=== PATIENT | female | born 1995 | race Caucasian/White ===

== ENCOUNTER 2024-05-10 11:10 | Outpatient (CLI) | payer OTHER, SELFPAY ==
[2024-05-10 19:56] LABS: Basophils # 0.1 K/mm3 (0-0.2); Basophils % 0.8 % (0.1-2.0); Eosinophils # 0.2 K/mm3 (0.0-0.4); Eosinophils % 3.1 % (0.1-12.0); Hemoglobin 14.3 g/dL (12.2-16.2); Lymphocytes # 2.3 K/mm3 (0.7-4.5); Lymphocytes % 30.4 % (10-50); Mean Corpuscular HGB Conc 33.3 g/dL (31.8-35.4); Mean Corpuscular Hemoglobin 30.4 pg (27.0-31.2); Mean Corpuscular Volume 91.5 fl (81-99); Mean Platelet Volume 11.6 fl (7.4-10.4); Monocytes # 0.4 K/mm3 (0.1-1.0); Monocytes % 5.6 % (1.7-9.3); Neutrophils # 4.5 K/mm3 (1.8-7.8); Neutrophils % 59.8 % (37.0-80.0); Platelet Count 340 K/mm3 (142-424); Red Cell Distribution Width 12.1 % (11.5-17.5); White Blood Count 7.5 K/mm3 (4.8-10.8)
[2024-05-10 21:24] LABS: Albumin Level 4.6 g/dl (3.5-5.0); Chloride 105 mmol/L (98-107)
[2024-05-10 21:25] LABS: Potassium 4.2 mmoL/L (3.5-5.1); Sodium 135 mmol/L (136-145)
[2024-05-10 21:27] LABS: Alanine Aminotransferase 60 U/L (12-78); Anion Gap 13.2 mEq/L (5-15); Aspartate Amino Transferase 33 U/L (14-36); Blood Urea Nitrogen 10 mg/dl (7-17); Carbon Dioxide 21 mmol/L (22.0-30.0); Estimated Glomerular Filt Rate 73 ml/min (>60); GFR (African American) 88 ML/MIN (>60)
[2024-05-10 21:28] LABS: Albumin/Globulin Ratio 1.6 (1.1-1.8); Alkaline Phosphatase 114 U/L (38-126); Calcium 9.5 mg/dl (8.4-10.2); Chol/HDL Ratio 4.1 (1-3.5); Cholesterol 180 mg/dl (140-200); Globulin 2.8 g/dL (1.3-3.2); Glucose 111 mg/dl (74-100); HDL Cholesterol 44 mg/dl (40-60); Total Protein,Serum 7.4 g/dl (6.3-8.2); Triglycerides 150 mg/dl (30-150); VLDL Cholesterol 30 mg/dL (0-40)
[2024-05-10 21:39] LABS: Direct LDL Cholesterol 97.74 mg/dL (100-129)
[2024-05-10 21:47] LABS: T4 (Thyroxine) 7.9 ug/dl (5.53-11.0)
[2024-05-10 21:51] LABS: Bilirubin,Total < 0.1 mg/dl (0.2-1.3)
[2024-05-10 21:52] LABS: 25-OH Vitamin D, Total 26.9 ng/mL (30-100)
[2024-05-10 22:01] LABS: Thyroid Stimulating Hormone 3.66 uIU/mL (0.465-4.68)
[2024-05-11 07:53] LABS: Hemoglobin A1C 5.3 % (4.0-6.0)
== END 2024-05-10 23:59 | disposition home or self-care (01) ==
LOC: LAB.DROPOF 05-11 08:49
PROVIDERS: PCP Nurse Practitioner Acute Care; Visit Provider Nurse Practitioner Acute Care
DX: F32.9 Major depressive disorder, single episode, unspecified (principal); F41.1 Generalized anxiety disorder; E55.9 Vitamin D deficiency, unspecified
CPT/HCPCS: 80053; 80061; 82306; 83036; 84436; 84443; 85025

== ENCOUNTER 2024-11-17 14:45 | Outpatient (CLI) | payer OTHER, SELFPAY ==
[2024-11-17 20:05] LABS: Lyme Ab IgM CIA ND
[2024-11-17 20:58] LABS: Hematocrit 40.5 % (37.0-47.0); Hemoglobin 13.3 g/dL (12.2-16.2); Immature Granulocytes % 0.3 %; Mean Corpuscular HGB Conc 32.8 g/dL (31.8-35.4); Mean Corpuscular Hemoglobin 29.2 pg (27.0-31.2); Mean Corpuscular Volume 89.0 fl (81-99); Nucleated Red Blood Cells % 0 %; Platelet Count 295 K/mm3 (142-424); Red Blood Count 4.55 M/mm3 (4.20-5.40); Red Cell Distribution Width-SD 41.1 fL; White Blood Count 6.9 K/mm3 (4.8-10.8)
[2024-11-17 21:13] LABS: Albumin Level 4.5 g/dl (3.5-5.0); Chloride 102 mmol/L (98-107)
[2024-11-17 21:14] LABS: Potassium 4.2 mmoL/L (3.5-5.1); Sodium 138 mmol/L (136-145)
[2024-11-17 21:16] LABS: Alanine Aminotransferase 25 U/L (12-78); Anion Gap 13.2 mEq/L (5-15); Aspartate Amino Transferase 28 U/L (14-36); Bilirubin,Total 0.5 mg/dl (0.2-1.3); Blood Urea Nitrogen 10 mg/dl (7-17); Carbon Dioxide 27 mmol/L (22.0-30.0); Creatinine,Serum 0.80 mg/dl (0.52-1.04); Estimated Glomerular Filt Rate 84 ml/min (>60); GFR (African American) 101 ML/MIN (>60)
[2024-11-17 21:17] LABS: Albumin/Globulin Ratio 1.6 (1.1-1.8); Alkaline Phosphatase 102 U/L (38-126); Calcium 9.7 mg/dl (8.4-10.2); Globulin 2.9 g/dL (1.3-3.2); Glucose 94 mg/dl (74-100); Total Protein,Serum 7.4 g/dl (6.3-8.2)
[2024-11-17 21:33] LABS: Free T4 (Free Thyroxine) 1.05 ng/dl (0.78-2.19)
[2024-11-17 21:46] LABS: Thyroid Stimulating Hormone 1.96 uIU/mL (0.465-4.68)
[2024-11-17 21:54] LABS: Hemoglobin A1C 5.1 % (4.0-6.0)
[2024-11-17 22:10] LABS: C-Reactive Protein 13.5 mg/L (0-4)
[2024-11-17 22:51] LABS: Hepatitis C Ab Qual. W/ RFX NEGATIVE (Negative)
--- OUTSIDE RECORDS SUMMARY | 2024-11-18 14:15 | XMS_ITS | Encounter Summary ---
Author Organization [place] [address] Care Team Providers Care Biology Department Chair Name Role Phone Unavailable Primary Care Provider Unavailabl e Reason for Referral * Ultrasound (Emergency) - Pending Review Specialty Diagnoses / Procedures Referred By Sanford anand Referred To Contact Radiology Diagnoses Iodine-deficiency related diffuse goiter Dysphagia, unspecified type Localized enlarged lymph nodes Procedures US THYROID Lary Harding APRN [address] [address] [place] [address] Phone: tel: fax: Referral ID Status Reason Start Date Expiration Date V isits Requested Visits Authorized [id number] Pending Review 11/18/2024 11/18/2025 1 1 Reason for Visit * Ultrasound (Emergency) - Pending Review Specialty Diagnoses / Procedures Referred By Sanford anand Referred To Contact Radiology Diagnoses Iodine-deficiency related diffuse goiter Dysphagia, unspecified type Localized enlarged lymph nodes Procedures US THYROID Lary Harding APRN [address] [place] [address] Phone: tel: fax: Referral ID Status Reason Start Date Expiration Date V isits Requested Visits Authorized [id number] Pending Review 11/18/2024 11/18/2025 1 1 Encounter Details Date Type Department Care Team (Latest Contact Info) Description 11/18/2024 2:15 PM EDT - 11/18/2024 2:17 PM EDT Hospital Encounter [facility] Ultrasound [address] [place] [address] Lary Harding, CAB STARTER [address] [place] [address] Iodine-deficiency related diffuse goiter; Dysphagia, unspecified type; Localized enlarged lymph nodes Discharge Disposition: Home or Self Care Social History Tobacco Use Types Packs/Day Years Used Date Smoking Tobacco: Every Day Cigarettes 0.5 13.7 Started: 2011 Smokeless Tobacco: Never Alcohol Use Standard Drinks/Week Comments Yes 6 (1 standard drink = 0.6 oz pur e alcohol) Overall Financial Resource Strain (CARDIA) Answe r Date Recorded How hard is it for you to pa y for the very basics like food, housing, medical care, and heating? Not hard at all 04/10/2021 PHQ-2 Answer Date Recorded PHQ-2 Score 0 07/16/2018 [facility] of Occupat ional Health - Occupational Stress Questionnaire Answer Date Recorded Do you feel stress - tense, restless, nervous, or anxious, or unable to sleep at night because your mind is troubled all the time - these days? Very much 04/10/2021 Hunger Vital Sign Answer Date Recorded Within the past 12 months, y ou worried that your food would run out before you got the money to buy more. Never true 04/10/19 22 Within the past 12 months, t he food you bought just didn't last and you didn't have money to get more. Never true 04/10/2021 PRAPARE - Transportation Answer Date Re corded In the past 12 months, has l ack of transportation kept you from medical appointments or from getting medications? No 03/26 In the past 12 months, has l ack of transportation kept you from meetings, work, or from getting things needed for daily living? No 04/10/2021 Sexually Active Control Partners Comments Yes Male not preventing Comments No Sex and Gender Information Value Date Recorded Sex Assigned at Not on file Legal Sex Female 1:17 AM EDT Gender Identity Not on file Sexual Orientation Not on file documented as of this encounter Functional Status * Is the person deaf or does he/she have serious difficulty hearing? Answer Date of Assessment Author No 03/19/2018 3:41 PM Hernan Fermin LPN * Is the person blind or does he/she have serious difficulty seeing even when wearing glasses? Answer Date of Assessment Author No 03/19/2018 3:41 PM Hernan Fermin LPN * Does this person have serious difficulty walking or climbing stairs? Answer Date of Assessment Author No 03/19/2018 3:41 PM Hernan Fermin LPN * Does this person have difficulty dressing or bathing? Answer Date of Assessment Author No 03/19/2018 3:41 PM Hernan Fermin LPN * Because of a physical, mental or emotional condition, does this person have difficulty doing errands alone such as visiting a doctor's office or shopping? Answer Date of Assessment Author No 03/19/2018 3:41 PM Hernan Fermin LPN documented as of this encounter Mental Status * Because of a physical, mental or emotional condition, does this person have serious difficulty concentrating, remembering or making decisions? Answer Entry Date Author No 03/19/2018 3:41 PM Hernan Fermin LPN documented in this encounter Medications at Time of Discharge acetaminophen (TYLENOL) 500 mg Oral Tablet Take 500 mg by mouth as needed for Pain. albuterol (PROVENTIL HFA;VENTOLIN HFA) 90 mcg/actuation Inhl HFA Aerosol InhalerIndicatio ns:Bronchitis Inhale 2 Puffs into the lungs every 4 hours as needed for Wheezing. 1 Each 10/14/2021 amitriptyline (ELAVIL) 10 mg Oral Tablet TAKE 1 TO 2 TABLETS BY MOUTH NIGHTLY AT BEDTIME NEEDED FOR INSOMNIA. 05/11/2024 diphenhydrAMINE (BENADRYL) 25 mg Oral TabletIndication s:insomnia Take 100 mg by mouth nightly. Indications: difficulty sleeping doxepin (SINEQUAN) 25 mg Oral Capsule Take 25 mg by mouth 2 times daily. 08/20/2022 FLUoxetine (PROZAC) 20 mg Oral Capsule Take 20 mg by mouth daily. 08/20/2022 lamoTRIgine (LAMICTAL) 25 mg Oral Tablet TAKE 1 TABLET BY MOUTH DAILY FOR 14 DAYS. THEN INCREASE TO 2 TABS DAILY X 14 DAYS. IF A RASH OR ITCHING OCCURS, STOP MEDICATION AND CALL THE CLINIC. 05/11/2024 documented as of this encounter Discharge Disposition Disposition Code Departure Means Destination Home or Self Care documented in this encounter Plan of Treatment Not on file documented as of this encounter Goals Goal Patient Goal Type Associated Problems Recent Progress Patient-Stated? Author Blood Pressure < 140/90 Blood Pressure 150/90(2024 4:38 PM EDT) No Hernan Louie LPN Eat better, exercise, reach an ideal body weight General No Joanne Cervantes MD BMI (Calculated) < 30 General 44(09/02/2022 10:01 AM EDT) No Hernan Louie LPN Stay Tobacco Free Lifestyle No Joanne Cervantes MD HEMOGLOBIN A1C < 7.0 Result Component 5.6( 1:06 PM EST) No Hernan Louie LPN documented as of this encounter Procedures Procedure Name Priority Date/Time Associated Diagnosis Comments US THYROID STAT 11/18/2024 2:43 PM EDT Iodine-deficiency related diffuse goiter Dysphagia, unspecified type Localized enlarged lymph nodes documented in this encounter Results * US THYROID (11/18/2024 2:43 PM EDT) Anatomical Region Laterality Modality Neck Ultrasound 11/18/2024 2:43 PM EDT Impressions 11/18/2024 2:47 PM EDT No thyroid nodule. - Note: Radiology results need to be interpreted within a comprehensive clinical context. If you have questions about the radiology report, please contact the office of the ordering clinician. Narrative 11/18/2024 2:47 PM EDT THYROID SONOGRAPHY, 11/18/2024 2:43 PM CLINICAL HISTORY: Thyroid nodule(s). E01.2-Pitvgx-fraogzsfmu related diffuse (endemic) ndfwrz-ZVT-58-CM R13.10-Dysphagia, ktyfsrculnc-WCM-85-CM R59.0-Localized enlarged lymph ckwlp-DOA-67-CM. COMPARISON: None. PROCEDURE COMMENTS: Sonographic evaluation of the thyroid gland per protocol. Images and technologist notes reviewed. METHODOLOGY: Up to 4 nodules with the highest scores are reported using the Thyroid Imaging Reporting and Data System (TI-RADS). This system promotes a common lexicon for thyroid nodule description, focusing on relevant imaging characteristics to allow risk stratification of individual nodules and makes recommendations for biopsy or sonographic follow-up based on the estimated risk profile. Caveat: Deviation from the below TI-RADS management recommendations may be appropriate based on individual patient variables and/or differing society criteria. Right lobe measures: 4.9 x 1.5 x 2.0 cm. Left lobe measures: 5.3 x 1.0 x 1.5 cm. RIGHT-side lymph nodes: No suspicious lymph nodes. LEFT-side lymph nodes: No suspicious lymph nodes. No measured thyroid nodules. No significant additional finding. Procedure Note Monse Barrera MD - 11/18/2024 THYROID SONOGRAPHY, 11/18/2024 2:43 PM CLINICAL HISTORY: Thyroid nodule(s). E01.5-Dvxmvr-jizmhdbwxi relateddiffuse (endemic) zlsusk-IWB-50-CM R13.10-Dysphagia, tiymzfjxkci-XBX-58-CM R59.0-Localized enlarged lymph brhhu-BTK-40-CM. COMPARISON: None. PROCEDURE COMMENTS: Sonographic evaluation of the thyroid gland perprotocol. Images and technologist notes reviewed. METHODOLOGY: Up to 4 nodules with the highest scores are reported usingthe Thyroid Imaging Reporting and Data System (TI-RADS). This system promotesa common lexicon for thyroid nodule description, focusing on relevantimaging characteristics to allow risk stratification of individual nodules andmakes recommendations for biopsy or sonographic follow-up based on the estimatedrisk profile. Caveat: Deviation from the below TI-RADS management recommendations maybe appropriate based on individual patient variables and/or differingsociety criteria. Right lobe measures: 4.9 x 1.5 x 2.0 cm. Left lobe measures: 5.3 x 1.0 x 1.5 cm. RIGHT-side lymph nodes: No suspicious lymph nodes. LEFT-side lymph nodes: No suspicious lymph nodes. No measured thyroid nodules. No significant additional finding. IMPRESSION: No thyroid nodule. - Note: Radiology results need to be interpreted within a comprehensiveclinical context. If you have questions about the radiology report, please contactthe office of the ordering clinician. us Lary Harding APRN IMG US ORDERABLES Final Result documented in this encounter Visit Diagnoses Diagnosis Iodine-deficiency related diffuse goiter Goiter, specified as simple Dysphagia, unspecified type Localized enlarged lymph nodes Enlargement of lymph nodes documented in this encounter
--- OUTSIDE RECORDS SUMMARY | 2024-11-18 14:18 | XMS_ITS | Encounter Summary ---
Author Organization [place] [address] Care Team Providers Care Construction Supervisor/Carpenter Name Role Phone Unavailable Primary Care Provider Unavailabl e Reason for Referral * MRI/CAT Scan (Emergency) - Closed Specialty Diagnoses / Procedures Referred By [facility]ford anand Referred To Contact Radiology Diagnoses Dysphasia Enlarged lymph node in neck Procedures CT SOFT TISSUE NECK W CONTRAST Lary Harding APRN [address] [address] [address] [place] [address] Phone: tel: fax: Referral ID Status Reason Start Date Expiration Date Visits Re quested Visits Authorized [id number] Closed 11/18/2024 11/18/2025 1 1 Reason for Visit * MRI/CAT Scan (Emergency) - Closed Specialty Diagnoses / Procedures Referred By Sanford anand Referred To Contact Radiology Diagnoses Dysphasia Enlarged lymph node in neck Procedures CT SOFT TISSUE NECK W CONTRAST Lary Harding APRN [address] [facility] [address] [place] [address] Phone: tel: fax: Referral ID Status Reason Start Date Expiration Date Visits Re quested Visits Authorized [id number] Closed 11/18/2024 11/18/2025 1 1 Encounter Details Date Type Department Care Team (Latest Contact Info) Description 11/18/2024 2:18 PM EDT - 11/18/2024 11:59 PM EDT Hospital Encounter [facility] CT [address] [place] [address] Lary Harding, HIGH [employer]CHO[employer] MATH TE[employer]ER [address] [place] [address] Dysphasia; Enlarged lymph node in neck Discharge Disposition: Home or Self Care Social [...] Answer Date Recorded PHQ-2 Score 0 07/16/2018 [facility] of Occupat ional Health - Occupational Stress [...] of Assessment Author No 03/19/2018 3:41 PM Henran Fermin LPN * Because of a physical, [...] < 30 General 44(09/02/2022 10:01 AM EDT) Hernan Hartley LPN Stay Tobacco Free Lifestyle No Joanne Cervantes MD HEMOGLOBIN A1C < 7.0 Result Component 5.6( 1:06 PM EST) No Hernan Louie LPN documented as of this encounter Procedures Procedure Name Priority Date/Time Associated Diagnosis Comments CT SOFT TISSUE NECK W CONTRAST STAT 11/18/2024 2:50 PM EDT Dysphasia Enlarged lymph node in neck documented in this encounter Results * CT SOFT TISSUE NECK W CONTRAST (11/18/2024 2:50 PM EDT) Anatomical Region Laterality Modality Neck Computed Tomogra phy 11/18/2024 2:50 PM EDT Impressions 11/18/2024 3:31 PM EDT 1. Mildly enlarged bilateral cervical chain lymph nodes which are indeterminate, however many demonstrate maintained fatty ángela and favored reactive. Recommend short interval follow-up imaging to assess stability/resolution. 2. Mild/moderate multifocal paranasal sinus disease. - Note: Radiology results need to be interpreted within a comprehensive clinical context. If you have questions about the radiology report, please contact the office of the ordering clinician. Narrative 11/18/2024 3:[address] SOFT TISSUE NECK W CONTRAST 11/18/2024 2:50 PM CLINICAL HISTORY: R47.78-Euwwdsfep-TXT-10-CM R59.0-Localized enlarged lymph kgyon-UYA-43-CM. COMPARISON: CT pulmonary angiogram dated 04/07/2021, CT cervical spine dated 11/14/2014 PROCEDURE COMMENTS: Multidetector volumetric CT scan of the neck per protocol. Multiplanar reconstructions. Isovue 370 IV contrast given as recorded in EPIC. Dose 1 : CT DLP Total : 312.65 mGycm DLP Spiral Max : 299.88 mGycm Maximum CTDI Vol : 9.45 mGy FINDINGS: PHARYNGEAL MUCOSA: No evidence of mass or active inflammation. ORAL CAVITY: No evidence of mass or active inflammation. LARYNX: The glottis is coapted at the time scanning, limiting its evaluation. The laryngeal structures otherwise appear symmetric without discrete nodular or masslike enhancement. The epiglottis is normal thickness. LYMPH NODES: Mildly enlarged bilateral cervical chain lymph nodes with exemplary lymph nodes including a right level IB lymph node measuring approximately 2.4 x 1 cm, a left level II lymph node approximately 1.3 x 1 cm SALIVARY GLANDS: No evidence of mass or active inflammation. THYROID: No suspicious nodule or mass. VESSELS AND CAROTID SPACE: Major vasculature appears patent. BONES: No acute fracture or osteolytic lesion. Reversal the normal cervical lordosis. OTHER: Mild irregular soft tissue density in the anterior mediastinum, likely related to residual thymus tissue. Small pleural-based small pleural-based nodular opacity in the posterior right upper lobe measuring 4 mm, nonspecific but likely inflammatory given the patient's age. Calcified granulomas in the left upper lobe. Multiple small mucous retention cyst left maxillary sinus. Mild mucosal thickening of the ethmoid air cells. Moderate right and mild mucosal thickening in the sphenoid sinuses. Mild opacification of the left mastoid air cells. Calcified left hilar lymph nodes, likely sequela. Chronic granulomas disease. Procedure Note Chriss Young, DO - 11/18/2024 CT SOFT TISSUE NECK W CONTRAST 11/18/2024 2:50 PM CLINICAL HISTORY: R47.33-Escufekgp-IZH-10-CM R59.0-Localized enlarged lymph mikxf-MRE-20-CM. COMPARISON: CT pulmonary angiogram dated 04/07/2021, CT cervical spinedated 11/14/2014 PROCEDURE COMMENTS: Multidetector volumetric CT scan of the neck perprotocol. Multiplanar reconstructions. Isovue 370 IV contrast given as recorded inEPIC. Dose 1 : CT DLP Total : 312.65 mGycm DLP Spiral Max : 299.88 mGycm Maximum CTDI Vol : 9.45 mGy FINDINGS: PHARYNGEAL MUCOSA: No evidence of mass or active inflammation. ORAL CAVITY: No evidence of mass or active inflammation. LARYNX: The glottis is coapted at the time scanning, limiting itsevaluation. The laryngeal structures otherwise appear symmetric without discretenodular or masslike enhancement. The epiglottis is normal thickness. LYMPH NODES: Mildly enlarged bilateral cervical chain lymph nodes withexemplary lymph nodes including a right level IB lymph node measuring approximately2.4 x 1 cm, a left level II lymph node approximately 1.3 x 1 cm SALIVARY GLANDS: No evidence of mass or active inflammation. THYROID: No suspicious nodule or mass. VESSELS AND CAROTID SPACE: Major vasculature appears patent. BONES: No acute fracture or osteolytic lesion. Reversal the normalcervical lordosis. OTHER: Mild irregular soft tissue density in the anterior mediastinum,likely related to residual thymus tissue. Small pleural-based smallpleural-based nodular opacity in the posterior right upper lobe measuring 4 mm,nonspecific but likely inflammatory given the patient's age. Calcified granulomas inthe left upper lobe. Multiple small mucous retention cyst left maxillarysinus. Mild mucosal thickening of the ethmoid air cells. Moderate right and mildmucosal thickening in the sphenoid sinuses. Mild opacification of the left mastoidair cells. Calcified left hilar lymph nodes, likely sequela. Chronicgranulomas disease. IMPRESSION: 1. Mildly enlarged bilateral cervical chain lymph nodes which are indeterminate, however many demonstrate maintained fatty ángela andfavored reactive. Recommend short interval follow-up imaging to assess stability/resolution. 2. Mild/moderate multifocal paranasal sinus disease. - Note: Radiology results need to be interpreted within a comprehensiveclinical context. If you have questions about the radiology report, please contactthe office of the ordering clinician. Lary Harding APRN IMG CT ORDERABLES Final Result documented in this encounter Visit Diagnoses Diagnosis Dysphasia Other speech disturbance Enlarged lymph node in neck documented in this encounter Administered Medications Inactive Administered Medications - up to 1 most recent administrations Medication Order MAR Action Action Date Dose Rate Site iopamidoL (ISOVUE-370) 370 mg iodine /mL (76 %) injection (LOW) 90 mL 90 mL, Intravenous, ONCE PRN, 1 dose, Starting on Thu11/18/24 at 1422, Until Thu11/18/24 at 1452, Radiography/Imaging, Radiology Procedure, VESICANT , CT (Contrasts) Given 11/18/2024 2:52 PM EDT 90 mL Left Arm sodium chloride 0.9% syringe Intravenous, ONCE PRN, 1 dose, Starting on Thu11/18/24 at 1422, Until Thu11/18/24 at 1453, Line Care, Flush peripheral lines every 12 hours, central lines every 8 hours, and after IV medication, CT (Contrasts) Given 11/18/2024 2:53 PM EDT 10 mL Lef t Arm documented in this encounter
[2024-11-19 04:25] LABS: Hepatitis B Surface Antigen Negative (Negative)
[2024-11-19 08:12] LABS: Triiodothyronine (T3) Free 3.2 pg/mL (2.0-4.4)
[2024-11-19 11:19] LABS: Lyme Ab CIA Negative (Negative)
--- OUTSIDE RECORDS SUMMARY | 2024-11-21 09:08 | XMS_ITS | Clinical Summary ---
Author Organization [employer] [facility] Address [address] [place] [phone] Phone Care Team Providers Care Veneer Sawyer Name Role Phone Unavailable Unavailable Conditions or Problems No information available. Medications No information available. Medications Administered No information available. Allergies, Adverse Reactions, Alerts No information available. Results No information available. Plan of Care No information available. Procedures No information available. Vital Signs No information available. Immunizations No information available. Advance Directives No information available.
--- OUTSIDE RECORDS SUMMARY | 2024-11-21 09:10 | XMS_ITS | Clinical Summary ---
Author Organization [facility] Address [address] [place] [address] Care Team Providers Care Sr. Director Product Management Name Role Phone Lary Harding MERT Primary Care Provider [phone] Social History Tobacco Use Types Packs/Day Years Used Date Smoking Tobacco: Never Assessed Comments Unknown Sex and Gender Information Value Date Recorded Sex Assigned at Not on file Legal Sex Female 2:04 PM EDT Gender Identity Not on file Sexual Orientation Not on file Plan of Treatment Upcoming Encounters Date Type Department Care Team (Late st Contact Info) Description 12/19/2024 11:00 AM EDT Office Visit [facility] OBGYN [address] [place] [address] Ernesto Brody MD [address] [facility] [address] [place], [place] [id number] Health Maintenance Due Date Last Done Comments ANNUAL PHYSICAL 1993 Annual Gynecologic Pelvic an d Breast Exam 1993 HEPATITIS C SCREENING 1993 TDAP/TD VACCINES (1 - Tdap) 01/22/2012 INFLUENZA VACCINE 09/23/2024 Pneumococcal Vaccine 0-49 Aged Out No longer eligible based on patient's age to complete this topic Insurance [facility] Care Teams Sr. Director Product Management Relationship Specialty Start Date End Date Lary Harding APRN [address] [facility] [place] [address] PCP - General Nurse Practitioner 08/25/24
--- OUTSIDE RECORDS SUMMARY | 2024-11-21 09:10 | XMS_ITS | Clinical Summary ---
Author Organization [facility] [place] [facility] Address [address] [place] [address] Phone Care Team Providers Care Conservator Artifacts Name Role Phone Unavailable Primary Care Provider Unavailabl e Allergies Active Allergy Reactions Criticality Noted Date Comments Codeine Sulfate Other (See Comments) 12/31/2016 - Hydrocodone-Acetaminop hen Other (See Comments) High 03/03/2012 Chest pain Sumatriptan Succinate 10/02/2009 Sumatriptan Other (See Comments) Medium 11/09/2014 felt like my head was going to explode Lamotrigine Other (See Comments) Medium 11/17/2016 Disorientation and blurred vision and shaking Latex Hives Medium 05/20/2010 Morphine Anxiety High 03/12/2009 also causes difficulty breathing Penicillins Shortness Of Breath,Swelling High 10/02/2009 12/31/2016 - Causes swelling in throat. Pt states it is difficult to breathe. Medications * This document contains information received from the source organization and may not represent a complete record from that organization. acetaminophen (TYLENOL) 500 mg Oral Tablet Take 500 mg by mouth as needed for Pain. Active diphenhydrAMINE (BENADRYL) 25 mg Oral TabletIndicatio ns:insomnia Take 100 mg by mouth nightly. Indications: difficulty sleeping Active albuterol (PROVENTIL HFA;VENTOLIN HFA) 90 mcg/actuation Inhl HFA Aerosol InhalerIndicati ons:Bronchitis Inhale 2 Puffs into the lungs every 4 hours as needed for Wheezing. 1 Each 2 Active Additional Information Patient not taking.Reported on 06/01/2024 doxepin (SINEQUAN) 25 mg Oral Capsule Take 25 mg by mouth 2 times daily. 3 Active FLUoxetine (PROZAC) 20 mg Oral Capsule Take 20 mg by mouth daily. 3 Active lamoTRIgine (LAMICTAL) 25 mg Oral Tablet TAKE 1 TABLET BY MOUTH DAILY FOR 14 DAYS. THEN INCREASE TO 2 TABS DAILY X 14 DAYS. IF A RASH OR ITCHING OCCURS, STOP MEDICATION AND CALL THE CLINIC. 5 Active amitriptyline (ELAVIL) 10 mg Oral Tablet TAKE 1 TO 2 TABLETS BY MOUTH NIGHTLY AT BEDTIME NEEDED FOR INSOMNIA. 5 Active Active Problems Patient Care Coordination No te Formatting of this note migh t be different from the original. Dr. Esteban edge 11/07/16, 02/27/17, 11/16/17 UDS 07/08/16 Pt Transferred Medical Records to [facility] 05/09/16 Problem Noted Date Diagnosed Date Obesity, Class III, BMI 40-49.9 (morbid obesity) 05/22/2022 Psychophysiological insomnia 01/07/2019 Attention deficit hyperactiv ity disorder (ADHD), predominantly inattentive type 06/09/2018 DERICK (generalized anxiety disorder) 08/11/2017 Mood disorder 08/11/2017 Seasonal affective disorder 03/02/2017 Attention deficit hyperactiv ity disorder (ADHD), combined type 01/19/2017 Hx gestational diabetes 05/14/2016 History of migraine 03/31/2016 History of depression 03/31/2016 History of anxiety 03/31/2016 Depression with anxiety 03/01/2014 Migraine 11/09/2013 Pulmonary nodule, left 07/07/2013 Overview (07/07/2013): Needs follow up CT in Nov 2013 Chronic pelvic pain in female 03/04/2012 Deliberate self-cutting 09/08/2011 History of chicken pox 10/02/2009 Obesity 10/02/2009 IBS (irritable bowel syndrome) 10/02/2009 Family planning 05/02/2009 Overview (11/09/2014): Overview: 05/02/09 New start OCP. Posttraumatic stress disorder 03/30/2009 Elevation of level of transa minase or lactic acid dehydrogenase (LDH) 03/12/2009 Esophagitis Gastritis and duodenitis Resolved Problems Problem Noted Date Diagnosed Date Resolved Date Normal labor 04/24/2020 06/02/2020 39 weeks gestation of 04/23/2020 06/02/2020 Encounter for induction of labor 04/23/2020 06/02/2020 COVID-19 affecting in third trimester 02/29/2020 06/02/2020 Tobacco use during 09/22/2019 09/22/2019 examination or jaleesa t, positive result 09/22/2019 06/02/2020 Obesity affecting in third trimester 09/22/2019 06/02/2020 Normal labor 04/02/2016 05/14/2016 Vaginal bleeding in 03/31/2016 05/14/2016 37 weeks gestation of 03/31/2016 05/14/2016 [place] contraction 03/19/2016 0 03/26/2016 Proteinuria affecting 03/19/2016 09/22/2019 Diet controlled gestational diabetes mellitus (GDM) in third trimester 02/11/2016 05/14/2016 High-risk 09/13/2015 06/03/19 21 Female genital tract infection 03/14/2009 03/31/2016 Overview (11/09/2014): Overview: Culture negative Nausea and vomiting 03/12/2009 03/31/19 17 Encounters Date Type Department Care Team Description 11/18/2024 2:18 PM EDT - 11/18/2024 11:59 PM EDT Hospital Encounter [facility] [address] [place] [address] Lary Harding APRN Dysphasia; Enlarged lymph node in neck Discharge Disposition: Home or Self Care 11/18/2024 2:15 PM EDT - 11/18/2024 2:17 PM EDT Hospital Encounter [facility] Ultrasound [address] [place] [address] Lary Harding APRN Iodine-deficiency related diffuse goiter; Dysphagia, unspecified type; Localized enlarged lymph nodes Discharge Disposition: Home or Self Care from Last 3 Months Immunizations Immunization Administration Dates Next Due DTaP 10/23/2004,199 5,1993,1993,1993 HPV Quadrivalent 11/23/2008,10/04/2008 Hepatitis A, Unspecified Formulation 10/04/2008 Hepatitis B, Unspecified Formulation 1993, 1993,1993 HiB, Unspecified Formulation 06/30/1994, 1993,1993,1993 IPV 03/20/1998, 4,1993,1993 Influenza Intradermal 12/10/2011 Influenza Vaccine Quadrivalent PF 12/01/2019,07/2015 Influenza Vaccine, Unspecifi ed Formulation 12/18/2009 MMR 03/20/1998,07/10/1994 Tdap 04/05/2020,03/27/2016 Surgical History Surgery Date Site/Laterality Comments UPPER GASTROINTESTINAL ENDOSCOPY 05/24/2008 - 06/22/2008 normal CHOLECYSTECTOMY LAPAROSCOPIC APPENDECTOMY 06/14/2010 N/A LAPAROSCOPIC APPENDECTOMY - SCIP performed by NADJA WETZEL at [facility] OR APPENDECTOMY UPPER GASTROINTESTINAL ENDOSCOPY 12/21/2018 N/A ESOPHAGOGASTRODUODENOSCO PY with biopsy; Surgeon: Savage More MD; Location: [facility]; Service: Endoscopy Medical History Medical History Date Comments Migraine IBS (irritable bowel syndrome) Urinary tract infection Self-harm Pt sts cuts her arms to self harm herself. Endometriosis PTSD (post-traumatic stress disorder) Depression 03/2018 Anxiety disorder Family History Medical History Relation Name Comments Asthma Brother Arthritis Father Colon Polyps Father Depression Father High Blood Pressure Maternal Aunt High Blood Pressure Maternal Grandfather Hearing Loss Maternal Grandmother High Blood Pressure Maternal Grandmother Other Maternal Grandmother Lupus Depression Mother Lupus Mother Other Mother Lupus Colon Polyps Sister Celiac Disease Neg Hx Cystic Fibrosis Neg Hx Hemochromatosis Neg Hx Liver Cancer Neg Hx Stomach Cancer Neg Hx Relation Name Status Comments Brother Alive Father Alive Maternal Aunt Alive Maternal Grandfather Alive Maternal Grandmother Alive Mother Alive Paternal Grandfather Alive Paternal Grandmother Alive Sister Alive Social History Tobacco Use Types Packs/Day Years Used Date Smoking Tobacco: Every Day Cigarettes 0.5 13.7 Started: 2011 Smokeless Tobacco: Never Tobacco Cessation:Ready to Q uit: Not Asked; Counseling Given: Not Answered Alcohol Use Standard Drinks/Week Comments Yes 6 (1 standard drink = 0.6 oz pur e alcohol) Overall Financial Resource Strain (CARDIA) Answe r Date Recorded How hard is it for you to pa y for the very basics like food, housing, medical care, and heating? Not hard at all 04/10/2021 PHQ-2 Answer Date Recorded PHQ-2 Score 0 07/16/2018 [facility] - Occupational Stress [...] on file Sexual Orientation Not on file Obstetrics History Para Term AB IAB SAB Ectopic Multiple Livin g Live Births 4 2 2 2 2 0 2 2 Date Outcome GA Total Labor Labor/2nd/3rd Weight Sex Type Anes PTL Saskia A1 A5 Name Clin SAB SAB 2016 Term 37w 6d 0h 05m 0h 05m 6 lb 7 oz (2.92 kg) M Vag-S pont Epidur al N Livin g 7 9 ANNIA SON,E ARMAAN BOY Aaron cates, Yenny Wells MD Complications:GDM (gestation al diabetes mellitus), class A1,Fever Delivery Location:[facility] Comments:none 2020 Term 39w 1d 0h 06m 0h 06m 7 lb 1.2 oz (3.21 kg) F Vag-S pont Epidur al Livin g 8 9 ANNIA SON,Sola CROOK BABY Aaron Yenny cates MD Delivery Location:[facility] ([facility]) Last Filed Vital Signs Vital Sign Reading Time Taken Comments Blood Pressure 150/90 06/01/2024 4:38 PM EDT Pulse 114 06/01/2024 4:38 PM EDT Temperature 36.7 C (98.1 F) 06/01/2024 4:38 PM EDT Respiratory Rate 16 06/01/2024 4:38 PM EDT Oxygen Saturation 99% 06/01/2024 4:38 PM EDT Inhaled Oxygen Concentration - - Weight 124.5 kg (274 lb 6.4 oz) 06/01/2024 4:38 PM EDT Height 173.4 cm (5' 8.25 ) 09/02/2022 1 0:01 AM EDT Body Mass Index 41.42 09/02/2022 10:01 AM EDT Plan of Treatment Health Maintenance Due Date Last Done Comments Annual Wellness Exam 01/22/1996 Pneumococcal Vaccine 0-49 (1 of 2 - PCV) 01/22/2012 Pap Smear 09/21/2022 09/22/2019, 11/09/2016, 10/04/2015 Cervical Cancer Screening 2023 HPV/Pap Cotest 2023 COVID-19 Vaccine ( season) 2024 Influenza Vaccine (#1) 2024 , 11/29/2015, 03/01/2014 (Declined), Additional history exists DTaP/TDaP/Td (9 - Td or Tdap) 04/05/2030 04/05/2020, 03/27/2016, 10/23/2004, Additional history exists Hepatitis B Vaccine Completed 1993, 1993, 1993 Meningococcal B Vaccine Aged Out No l onger eligible based on patient's age to complete this topic Goals Goal Patient Goal Type Associated Problems Recent Progress Patient-Stated? Author Blood Pressure < 140/90 Blood Pressure 150/90(2024 4:38 PM EDT) No Hernan Louie LPN Eat better, exercise, reach an ideal body weight General No Joanne Cervanets MD BMI (Calculated) < 30 General 44(09/02/2022 10:01 AM EDT) No Hernan Louie LPN Stay Tobacco Free Lifestyle No Joanne Cervantes MD HEMOGLOBIN A1C < 7.0 Result Component 5.6( 1:06 PM EST) No Hernan Louie LPN Procedures Procedure Name Priority Date/Time Associated Diagnosis Comments CT SOFT TISSUE NECK W CONTRAST STAT 11/18/2024 2:50 PM EDT Dysphasia Enlarged lymph node in neck US THYROID STAT 11/18/2024 2:43 PM EDT Iodine-deficiency related diffuse goiter Dysphagia, unspecified type Localized enlarged lymph nodes PATTERN GRADER SUPERVISOR CYTOLOGY REQUEST (PAP ONLY) Routine 09/22/2019 9:49 AM EDT examination or test, positive result High-risk in first trimester from Last 3 Months or Most Recently Relevant to Health Maintenance Results * CT SOFT TISSUE NECK W [...] W CONTRAST 11/18/2024 2:50 PM CLINICAL HISTORY: R47.93-Igotjzopd-OON-10-CM R59.0-Localized enlarged lymph bewdf-BPS-68-CM. COMPARISON: CT pulmonary angiogram dated 04/07/2021, CT [...] sequela. Chronic granulomas disease. Procedure Note Chriss Young DO - 11/18/2024 CT SOFT TISSUE NECK W CONTRAST 11/18/2024 2:50 PM CLINICAL HISTORY: R47.32-Xrfxtnkfs-VNE-10-CM R59.0-Localized enlarged lymph twzjf-JSF-57-CM. COMPARISON: CT pulmonary angiogram dated 04/07/2021, CT [...] of the ordering clinician. us Lary Harding MORGUE TECHNICIAN IMG CT ORDERABLES Final Result * US THYROID (11/18/2024 2:43 PM EDT) [...] 11/18/2024 2:43 PM CLINICAL HISTORY: Thyroid nodule(s). E01.5-Jzhhsj-upcnpwraqz related diffuse (endemic) hxywft-VBM-78-CM R13.10-Dysphagia, prhnxcyhnmd-EBM-49-CM R59.0-Localized enlarged lymph pukoa-WFG-38-CM. COMPARISON: None. PROCEDURE COMMENTS: Sonographic evaluation of [...] 11/18/2024 2:43 PM CLINICAL HISTORY: Thyroid nodule(s). E01.6-Imjesc-sspymqauuu relateddiffuse (endemic) xusmcx-WHE-32-CM R13.10-Dysphagia, gpgzzjhyifp-GWA-25-CM R59.0-Localized enlarged lymph cohmy-DWU-61-CM. COMPARISON: None. PROCEDURE COMMENTS: Sonographic evaluation of [...] office of the ordering clinician. Lary Harding MORGUE TECHNICIAN [facility] US ORDERABLES Final Result * PATTERN GRADER SUPERVISOR CYTOLOGY REQUEST (PAP ONLY) (09/22/2019 9:49 AM EDT) CASE REPORT Gynecologic Cytology Report Case: [id number] Authorizing Provider: Joanne Cervantes MD Collected: 09/22/2019 0949 Ordering Location: [facility] Received: 09/22/2019 0949 First Screen: Bhavin Varela CT Specimen: LIQUID-BASED PAP - CERVICAL/ENDOCERV ICAL, Cervix, Endocervical 09/23/2019 10:46 AM EDT [facility] PAP FINAL DIAGNOSIS Negative for intraepithelial lesion or malignancy 09/23/2019 10:46 AM EDT [facility] at 1046 EDT MICROSCOPIC DESCRIPTION Microscopic examination is performed and the findings corroborate the diagnosis. 09/23/2019 10:46 AM EDT [facility] PAP SMEAR ADEQUACY Satisfactory for evaluation 09/23/2019 10:46 AM EDT [facility] PAP ORGANISMS NOTED Fungal organisms present consistent with abdifatah. 09/23/2019 10:46 AM EDT [facility] ENDOCERVICAL T-ZONE Transformation zone present 09/23/2019 10:46 AM EDT [facility] EMBEDDED IMAGES 0 10:46 AM EDT [facility] PAP DISCLAIMER The Pap Smear is a screening test that aids in the detection of cervical cancer and cancer precursors. Both false positive and false negative results can occur. The test should be used at regular intervals, and positive results should be confirmed before definitive therapy. Processed using the ThinPrep Fire Extinguisher Technician Automated cytology screening device (Entitle). 09/23/2019 10:46 AM EDT [facility] Thin Prep ENDOCERVICAL STRUCTURE / Unknown 09/22/2019 9:49 AM EDT 09/22/2019 9:49 AM EDT us Joanne Cervantes MD CYTOLOGY ORDERABLES Amanda mota Result [facility] [address] [place] [address] from Last 3 Months or Most Recently Relevant to Health Maintenance Insurance CHOICE PLUS CHOICE PLUS CHOICE PLUS CHOICE PLUS Advance Directives For more information, please contact: [phone] * Full Code (Latest Code Status on File) Date Activated Date Inactivated Comments 04/25/2020 7:56 AM 04/25/2020 1:04 PM * Full Code Date Activated Date Inactivated Comments 04/23/2020 4:55 PM 04/24/2020 7:15 AM * Full Code Date Activated Date Inactivated Comments 03/31/2016 8:33 AM 04/03/2016 7:56 PM
--- OUTSIDE RECORDS SUMMARY | 2024-11-21 09:10 | XMS_ITS | Clinical Summary ---
Author Organization [facility] Address [address] [place] [phone] Phone Care Team Providers Care Business Line Controller Name Role Phone Joanne Cervantes MD Primary Care Provider Social History Tobacco Use Types Packs/Day Years Used Date Smoking Tobacco: Never Assessed Comments Unknown Sex and Gender Information Value Date Recorded Sex Assigned at Not on file Legal Sex Female 10:06 PM EDT Gender Identity Not on file Sexual Orientation Not on file Plan of Treatment Health Maintenance Due Date Last Done Comments DTap,Tdap,and Td (1 - Tdap) 01/22/2004 Pap Screening 2014 HPV (1 - 3-dose SCDM series) 01/22/2020 Influenza Vaccine (#1) 2024 RSV Vaccine (60+ or ) (1 - 1-dose 75+ series) 01/22/2068 Meningococcal conjugate chadwick nt 4 (MCV4) Aged Out No longer eligible b ased on patient's age to complete this topic Pneumococcal 0-49 Aged Out No longer eligible based on patient's age to complete this topic RSV Immunization (<20 months) Aged Out No longer eligible based on patient's age to complete this topic Insurance [employer] ALL OTHERS NOT MEDICARE Care Teams Business Line Controller Relationship Specialty Start Date End Date Joanne Cervantes MD [address] [place] [address] PCP - General Family Medicine 09/08/11
--- OUTSIDE RECORDS SUMMARY | 2024-11-21 09:10 | XMS_ITS | Patient Health Record ---
Author Organization [facility] Address [address] [place] [address] Care Team Providers Care Supervisor Hospitality House Name Role Phone Nelda Benitez [phone] Allergies Allergen (clinical drug ingredient) Drug/Non Drug Allergy documented on EMR Reaction Allergy Type Onset Date Status sumatriptan Imitrex Unknown Drug Allergy Activ e Latex Latex Unknown Allergy Active morphine Morphine Unknown Drug Allergy Active Penicillin Unknown Drug Allergy Active Reason For Referral No Information Medications Medication SIG (Take, Route, Frequency, Duration) Notes Start Date End Date Status Pseudoephedrine HCl ER 120 MG 1 tablet as needed Orally every 12 hrs; Duration: 7 days PARTS SALVAGER at [phone] 01/13/2024 Active Fluticasone Propionate 50 MCG/ACT 1 spray in each nostril Nasally Once a day; Duration: 30 days PARTS SALVAGER at [phone] 01/13/2024 Active Benadryl Allergy 25 MG 1 tablet at bedti me as needed Orally Once a day Active Social History Tobacco Use: Social History Observation Description Date Details (start date - stop date) Current Smoker 12/25/2011 - NA Tobacco Control (Standard) Question Answer Notes Tobacco use: Current smoker When did you start smoking? 12/25/2011 How often do you smoke cigarettes? Every day How many cigarettes a day do you smoke? 6-10 Problems Problem Type SNOMED Code ICD Code Onset Dates Problem Status W/U Status Risk Notes Problem History of ear infections (Z86.69) Active confirmed Problem Insomnia (854246998) Insomnia (G47.00) Active confirmed Problem Seasonal allergy (749762234) Environmental and seasonal allergies (J30.89) Active confirmed Problem Anxiety depression (130613069) Anxiety with depression (F41.8) Active confirmed Problem Posttraumatic stress disorder (80353376) PTSD (post-traumatic stress disorder) (F43.10) Active confirmed Problem History of depression (658127541) History of depression (Z86.59) 017 Active confirmed Problem Irritable bowel syndrome (46572422) IBS (irritable bowel syndrome) (K58.9) 010 Active confirmed Problem Deliberate self-cutting (739528166) Deliberate self-cutting (Z72.89) Active confirmed Problem Migraine (63096149) Migraine (G43.909) 014 Active confirmed Problem History of infectious disease (183865704) History of chicken pox (Z86.19) Active confirmed Problem History of gestational diabetes mellitus (961391276) Hx gestational diabetes (Z86.32) 021 Active confirmed Problem History of psychiatric disorder (075349768) History of anxiety (Z86.59) 017 Active confirmed Problem Attention deficit hyperactivity disorder (408251506) Attention deficit hyperactivity disorder (ADHD), combined type (F90.2) Active confirmed Problem Seasonal affective disorder (470156452) Seasonal affective disorder (F33.8) 018 Active confirmed Problem Mood disorder (95518401) Mood disorder (F39) Active confirmed Problem Gastritis and duodenitis (812988064) Gastritis and duodenitis (K29.90) Active confirmed Problem Esophagitis (56047112) Esophagitis (K20.90) Active confirmed Problem Insomnia disorder related to another mental disorder (72771070) Psychophysiological insomnia (F51.04) Active confirmed Problem Body mass index 40+ - severely obese (933117702) Body mass index (BMI) of 40.1 to 44.9 in adult (Z68.41) Active confirmed Problem Morbid obesity (323005122) Morbid obesity with BMI of 40.0-44.9, adult (E66.01) Active confirmed Problem Current smoker (69251403) Current smoker (F17.200) Active confirmed Vital Signs Respiratory Rate 16 /min 01/13/2024 Height 69 in 01/13/2024 Weight 280 lbs 01/13/2024 BMI 41.34 kg/m2 01/13/2024 Encounters Encounter Location Date Provider Diagnosis [facility] [address] [place] [phone] 01/13/2024 Nelda Benitez Environmental and se asonal allergies J30.89 ; Acute sinusitis with symptoms > 10 days J01.90 ; Psychophysiological insomnia F51.04 ; History of ear infections Z86.69 ; Other specified bacterial agents as the cause of diseases classified elsewhere B96.89 ; Right ear pain H92.01 ; Body mass index (BMI) of 40.1 to 44.9 in adult Z68.41 ; Morbid obesity with BMI of 40.0-44.9, adult E66.01 and Current smoker F17.200 Assessments Encounter Date Diagnosis (ICD Code) Assessment Notes Treatment Notes Treatment Clinical Notes Section Notes 01/13/2024 Acute sinusitis with symptoms > 10 days (ICD-10 - J01.90) Acute Sinusitis: Care Instructions material was published, Saline Nasal Washes: Care Instructions material was published Complete the entire course of antibiotics as prescribed, even when symptoms have improved, to prevent a relapse of infection and the development of antibiotic resistance. 01/13/2024 Environmental and seasonal allergies (ICD-10 - J30.89) Allergy Blood Tests: About These Tests material was published 01/13/2024 Psychophysiological insomnia (ICD-10 - F51.04) Insomnia: Care Instructions material was published, Learning About Sleeping Well material was published Discuss with your PCP if this is the best medicaiton to manage your insomnia 01/13/2024 History of ear infections (ICD-10 - Z86.69) 01/13/2024 Other specified bacterial agents as the cause of diseases classified elsewhere (ICD-10 - B96.89) 01/13/2024 Right ear pain (ICD- 10 - H92.01) Earache: Care Instructions material was published If symptoms persist or worsen greater than 7-10 days, follow up in the clinic or with PCP for further evaluation. 01/13/2024 Body mass index (BMI ) of 40.1 to 44.9 in adult (ICD-10 - Z68.41) Learning About Healthy Weight material was published 01/13/2024 Morbid obesity with BMI of 40.0-44.9, adult (ICD-10 - E66.01) 01/13/2024 Current smoker (ICD- 10 - F17.200) Quitting Tobacco: Care Instructions material was published 01/13/2024 Other This visit was conducted via [employer]. Please understand that the care that was provided during today's virtual visit was based upon the information you have provided. Due to the limitation of virtual care a comprehensive physical examination could not be performed. If you experience any worsening of your condition we recommend that you seek an in person evaluation with your nearest [facility], [facility], or Emergency Room, Doxycycline Oral Capsule (DOXYCYCLINE - ORAL) material was published, Pseudoephedrine Extended Release Oral Tablet (PSEUDOEPHEDRINE SUSTAINED-RELEASE - ORAL) material was published, Fluticasone Metered Dose Nasal [place] (FLUTICASONE SPRAY - NASAL) material was published, Levocetirizine Oral Tablet (LEVOCETIRIZINE - ORAL) material was published Plan Of Treatment No Information Insurance Providers Payer Name Payer Address Payer Phone Subscriber Number Group Number Insured Name Patient Relationship to Insured Coverage Start Date Coverage End Date [facility] [address] [address] [place] [phone] [id number] Stephanie Rivero Self - patient is the insured Medical (General) History Medical History History ICD Code History of ear infections Z86.69 Insomnia G47.00 Environmental and seasonal allergies J30 .89 Anxiety with depression F41.8 PTSD (post-traumatic stress disorder) F4 3.10 Surgical History Surgery Date(Month/Year) laproscopic surgery for ovarian cysts tonsilectomy jocelyne appendectomy Hospitalization History Reason Date(Month/Year) childbirth
== END 2024-11-17 23:59 ==
LOC: LAB.DROPOF 11-21 09:02
PROVIDERS: PCP Nurse Practitioner; Visit Provider Nurse Practitioner
DX: O24.419 Gestational diabetes mellitus in pregnancy, unspecified control (principal); E04.1 Nontoxic single thyroid nodule; R63.4 Abnormal weight loss; R13.10 Dysphagia, unspecified; R06.02 Shortness of breath; T14.8XXA Other injury of unspecified body region, initial encounter; W57.XXXA Bitten or stung by nonvenomous insect and other nonvenomous arthropods, initial encounter; Z11.59 Encounter for screening for other viral diseases
CPT/HCPCS: 80053; 83036; 84439; 84443; 84480; 84481; 85025; 85651; 86140; 86225; 86235; 86618; 86803; 87389